=== PATIENT | female | born 1990 | race Hispanic/Latino ===

== ENCOUNTER 2018-06-07 10:11 | Emergency (ER) | payer MEDICAID ==
[2018-06-07 11:59] LABS: BASO % 0.4 % (0.0-2.0); EOS % 0.2 % (0.0-4.0); HEMOGLOBIN 13.7 g/dL (11.0-16.0); LYMPH # 1.4 K/uL (1.0-4.3); LYMPH % 21.7 % (20.0-40.0); MEAN CELL VOLUME 90.4 fL (81.0-99.0); MEAN CORPUSCULAR HEMOGLOBIN 31.1 pg (27.0-31.0); MEAN CORPUSCULAR HGB CONC 34.4 g/dL (33.0-37.0); MEAN PLATELET VOLUME 10.6 fL (7.2-11.7); MONO # 0.4 K/uL (0.0-0.8); MONO % 6.3 % (0.0-10.0); NEUT # 4.6 K/uL (1.8-7.0); NEUT % 71.4 % (50.0-75.0); RBC 4.4 Mil/uL (3.80-5.20); RED CELL DISTRIBUTION WIDTH 13.4 % (11.5-14.5); WHITE BLOOD COUNT 6.5 K/uL (4.8-10.8)
[2018-06-07 12:27] VITALS: RESP 18
[2018-06-07 12:40] LABS: ALBUMIN 4.4 g/dL (3.5-5.0); ALT/SGPT 22 U/L (9-52); AST/SGOT 24 U/L (14-36); BLOOD UREA NITROGEN 5 mg/dL (7-17); CALCIUM 9.3 mg/dl (8.6-10.4); GFR NON-AFRICAN AMERICAN > 60
[2018-06-07 12:42] LABS: ALB/GLOB RATIO 1.4 (1.0-2.1)
[2018-06-07 13:29] VITALS: BP 110/81; PULSE 71; TEMP 98.1
[2018-06-07 13:34] VITALS: O2SAT 98
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
== END 2018-06-07 13:50 | disposition home or self-care (01) ==
LOC: C.ER 10:11
DX: L03.818 Cellulitis of other sites (principal)